=== PATIENT | female | born 1960 | race Caucasian/White ===

== ENCOUNTER 2017-01-25 14:02 | Emergency (ER) | payer MEDICARE ==
[~2017-01-25] VITALS: Ht 165.1 cm; Wt 68.0 kg
[2017-01-25 14:20] VITALS: BP 154/72; PULSE 93; RESP 16; TEMP 98.6; O2SAT 99
[2017-01-25] MEDS ORDERED: EFFE150C PO (14:45)
[2017-01-25] MEDS ORDERED: BACL10TA PO (14:45)
[2017-01-25] MEDS ORDERED: GABA100C4 PO (14:45)
[2017-01-25] MEDS ORDERED: PLAQ200T PO (14:45)
--- NOTE | 2017-01-25 15:02 | RADRPT ---
EXAM DATE/TIME: 01/25/2017 14:55 [facility] COMPARISON: No previous studies available for comparison. INDICATIONS : Cat bite on right forearm MEDICAL HISTORY : None. SURGICAL HISTORY : None. ENCOUNTER: Initial ACUITY: 2 days PAIN SCORE: 3/10 LOCATION: Right middle forearm FINDINGS: Two view examination of the right forearm demonstrates no evidence of fracture or dislocation. Bony mineralization is normal. The soft tissue structures are intact. CONCLUSION: Unremarkable examination of the right forearm. Michael Santillan MD on January 25, 2017 at 15:01 Board Certified Radiologist. This report was verified electronically.
--- NOTE | 2017-01-25 15:04 | PD ---
HPI Chief Complaint: Bite or Sting Time Seen by Provider: 14:53 Travel History International Travel<30 days: No Contact w/Intl Traveler<30days: No Traveled to known affect area: No History of Present Illness HPI 56-year-old female presents emergency department for evaluation of right forearm pain. Patient reports yesterday evening while out to eat at the [employer] she bent down to pet the restaurant cat and the Became startled biting her in the right forearm. She reports she woke up today and noticed the area has become increasingly more red and painful. She denies fever, chills, nausea, vomiting. She reports pain within the dorsal aspect of the forearm which is nonradiating, constant, no aggravating or alleviating factors. Pain severity 5/ 10. She reports the cat was well-appearing and was wearing a collar with the [employer]. She declines rabies prophylaxis. PFSH Past Medical History Hx Anticoagulant Therapy: Yes Autoimmune Disease: Yes (lupus) Cerebrovascular Accident: Yes Diminished Hearing: No Immunizations Current: Yes Tetanus Vaccination: > 5 Years Influenza Vaccination: Yes ?: Not Menopausal: Yes Social History Alcohol Use: Yes (2 daily) Tobacco Use: No Substance Use: Yes (pot) Allergies-Medications (Allergen,Severity, Reaction): Coded Allergies: Sulfa (Sulfonamide Antibiotics) (Verified Allergy, Unknown, hives, 01/25/17 ) droperidol (Verified Allergy, Unknown, jaws locked, 01/25/17) Reported Meds & Prescriptions Reported Meds & Active Scripts Active Reported Gabapentin 100 Mg Cap 100 Mg PO DAILY Effexor XR 24 HR (Venlafaxine HCl) 150 Mg Cap 150 Mg PO DAILY Plaquenil (Hydroxychloroquine Sulfate) 200 Mg Tab 200 Mg PO DAILY Take with food Baclofen 10 Mg Tab 10 Mg PO DAILY PRN Review of Systems Except as stated in HPI: all other systems reviewed are Neg General / Constitutional: No: Fever Eyes: No: Visual changes HENT: No: Headaches Cardiovascular: No: Chest Pain or Discomfort Respiratory: No: Shortness of Breath Physical Exam Narrative GENERAL: Well-nourished, well-developed patient. Patient is nontoxic-appearing. SKIN: Focused skin assessment warm/dry. 8 x 8 cm area of erythema and induration with 2 central puncture wounds. No drainage. The area is indurated without fluctuance. HEAD: Normocephalic. EYES: No scleral icterus. No injection or drainage. NECK: Supple, trachea midline. No JVD or lymphadenopathy. CARDIOVASCULAR: Regular rate and rhythm without murmurs, gallops, or rubs. RESPIRATORY: Breath sounds equal bilaterally. No accessory muscle use. MUSCULOSKELETAL: No cyanosis, or edema. 8 x 8 cm area of erythema and induration with 2 central puncture wounds. No drainage. The area is indurated without fluctuance. Data Data Last Documented VS Vital Signs Date Time Temp Pulse Resp B/P (MAP) Pulse Ox O2 Delivery O2 Flow Rate FiO2 01/25/17 14:37 (99) 01/25/17 14:20 98.6 93 16 99 Orders Orders Forearm (2vws) (01/25/17 ) Basic Metabolic Panel (Bmp) (01/25/17 15:28) Complete Blood Count With Diff (01/25/17 15:28) Blood Culture (01/25/17 15:28) Iv Access Insert/Monitor (01/25/17 15:28) Ketorolac Inj (Toradol Inj) (01/25/17 15:30) Clindamycin Inj (Cleocin Inj) (01/25/17 15:30) Tetanus/Diphtheria Tox Adult (Tetanus/Di (01/25/17 15:30) Labs Laboratory Tests Test 01/25/17 15:45 White Blood Count 6.7 TH/MM3 Red Blood Count 3.85 MIL/MM3 Hemoglobin 12.9 GM/DL Hematocrit 39.1 % Mean Corpuscular Volume 101.5 FL Mean Corpuscular Hemoglobin 33.4 PG Mean Corpuscular Hemoglobin Concent 32.9 % Red Cell Distribution Width 16.2 % Platelet Count 156 TH/MM3 Mean Platelet Volume 8.4 FL Neutrophils (%) (Auto) 67.8 % Lymphocytes (%) (Auto) 15.9 % Monocytes (%) (Auto) 13.4 % Eosinophils (%) (Auto) 0.3 % Basophils (%) (Auto) 2.6 % Neutrophils # (Auto) 4.5 TH/MM3 Lymphocytes # (Auto) 1.1 TH/MM3 Monocytes # (Auto) 0.9 TH/MM3 Eosinophils # (Auto) 0.0 TH/MM3 Basophils # (Auto) 0.2 TH/MM3 CBC Comment DIFF FINAL Differential Comment Blood Urea Nitrogen 10 MG/DL Creatinine 0.83 MG/DL Random Glucose 96 MG/DL Calcium Level 8.8 MG/DL Sodium Level 133 MEQ/L Potassium Level 4.3 MEQ/L Chloride Level 99 MEQ/L Carbon Dioxide Level 27.0 MEQ/L Anion Gap 7 MEQ/L Estimat Glomerular Filtration Rate 71 ML/MIN MDM Medical Decision Making Medical Screen Exam Complete: Yes Emergency Medical Condition: Yes Differential Diagnosis Feline Bite, puncture wound, cellulitis, lymphangitis Narrative Course 56-year-old female presents to the emergency department for evaluation of right upper extremity pain. Patient was bit by a cat yesterday evening. She reports the cat was well-appearing and had a collar on with the [place]. She reports she startled the cat when she bent down to pet it and it bit her in the right forearm . She reports pain, swelling, increased redness at the site of the bite today. She denies fever, chills, nausea, vomiting. On exam patient has approximately 8 x 8 cm area of erythema and induration of the right upper extremity at the site of the bite. X-ray was obtained to rule out retained foreign body, IV access obtained, IV clindamycin administered, CBC and BMP and blood cultures pending. X-ray was negative for retained foreign body CBC: Remarkable, WBC 6.7 BMP: Unremarkable Agnostic findings discussed with patient. The area was marked with a skin marker. Strict return precautions discussed. Patient verbalizes understanding and agrees to plan Diagnosis Primary Impression: Cat bite Qualified Codes: W55.01XA - Bitten by cat, initial encounter Additional Impression: Cellulitis Qualified Codes: L03.113 - Cellulitis of right upper limb Referrals: Primary Care Physician Additional Instructions: Take the antibiotics as prescribed. Use the sling to elevate the extremity for comfort. If the area of redness spreads beyond the area marked return to the emergency department for reevaluation. Return to the emergency department if you developed severe increasing pain, fever, chills Scripts Clindamycin (Clindamycin) 300 Mg Cap 300 MG PO Q6H for Infection, #40 CAP 0 Refills Prov: Francy De Oliveira 01/25/17 Disposition: 01 DISCHARGE HOME Condition: Stable Francy De Oliveira Jan 25, 2017 15:04
[2017-01-25] MEDS ORDERED: CLINDAMYCIN INJ 600 MG in SODIUM CHLORIDE 0.9% INJ 100 ML IV ONE (15:30)
[2017-01-25] MEDS ORDERED: KETOROLAC TROMETHAMINE 30 MG/ML (IVP) VIAL IVP ONE (15:30)
[2017-01-25] MEDS ORDERED: TETANUS/DIPHTHERIA TOXOID ADULT 0.5 ML VIAL IM ONE (15:30)
[2017-01-25 15:52] LABS: AUTOMATED NEUTROPHIL # 4.5 TH/MM3 (1.8-7.7); BASOPHIL # 0.2 TH/MM3 (0-0.2); BASOPHIL % 2.6 % (0.0-2.0); EOSINOPHIL % 0.3 % (0.0-4.0); HEMATOCRIT 39.1 % (35.0-46.0); HEMO FLAGS DIFF FINAL; LYMPH % 15.9 % (9.0-44.0); LYMPHOCYTE # 1.1 TH/MM3 (1.0-4.8); MEAN CELL VOLUME 101.5 FL (80.0-100.0); MEAN CORPUSCULAR HEMOGLOBIN 33.4 PG (27.0-34.0); MEAN CORPUSCULAR HGB CONC 32.9 % (32.0-36.0); MONO % 13.4 % (0.0-8.0); NEUT % 67.8 % (16.0-70.0); PLATELET COUNT 156 TH/MM3 (150-450); RED BLOOD COUNT 3.85 MIL/MM3 (4.00-5.30); RED CELL DISTRIBUTION WIDTH 16.2 % (11.6-17.2); WHITE BLOOD COUNT 6.7 TH/MM3 (4.0-11.0)
[2017-01-25 16:00] LABS: POTASSIUM 4.3 MEQ/L (3.5-5.1)
[2017-01-25] MEDS ORDERED: CLIN1CAP6 PO (16:14)
[2017-01-25] MEDS ORDERED: ULTR50TA5 PO (16:17)
== END 2017-01-25 17:15 | disposition home or self-care (01) ==
LOC: PHEFT 14:02
DX: L03.113 Cellulitis of right upper limb (principal); W55.01XA Bitten by cat, initial encounter; M32.9 Systemic lupus erythematosus, unspecified; Z86.73 Personal history of transient ischemic attack (TIA), and cerebral infarction without residual deficits; Z79.01 Long term (current) use of anticoagulants
CPT/HCPCS: 73090; 80048; 85025; 87040; 90471; 90714; 96365; 96375; 99284; J1885